=== PATIENT | female | born 1995 ===

== ENCOUNTER → 2017-11-03 | Outpatient (CLI) | payer OTHER ==
[~2017-11-03] MED LIST: LEVO1TBD PO; LORA5TAB16 PO; MONT10TA PO
[2017-11-03 09:31] LABS: PLATELET COUNT, AUTOMATED 226 K/uL (150-450)
== END ==
LOC: LAB 08:38
PROVIDERS: ATTEND Nurse Practitioner Primary Care
DX: R10.9 Unspecified abdominal pain (principal)
CPT/HCPCS: 36415; 81001; 82040; 82247; 82310; 82374; 82435; 82565; 82947; 84075; 84132; 84155; 84295; 84450; 84460; 84520; 85025

== ENCOUNTER → 2017-11-05 | Outpatient (CLI) | payer OTHER ==
[~2017-11-05] MED LIST changes: +SULF-198 PO
--- NOTE | 2017-11-05 09:23 | RADIOLOGY IMAGING REPORT ---
FACILITY: [facility] PATIENT NAME: Linh Vásquez : 1995 MR: [id number] V: [id number] EXAM DATE: ORDERING PHYSICIAN: HEYDI FLYNN TECHNOLOGIST: Location: [facility] Patient: Linh Vásquez : 1995 Visit/Account:[id number] Date of Sevice: 11/05/2017 CT abdomen and pelvis without IV contrast History: Flank pain COMPARISON STUDIES: none. TECHNIQUE: Axial CT images were obtained through the abdomen and pelvis without intravenous contras t. Reformatted coronal and sagittal images were also obtained. One of the following dose optimization techniques was utilized in the performance of this exam: Autom ated exposure control; adjustment of the mA and/or kV according to the patient's size; or use of an i terative reconstruction technique. Specific details can be referenced in the facility's radiology C T exam operational policy. FINDINGS: Chest bases: Negative Liver: Normal. Spleen: size is normal. Gallbladder and bile ducts: Gallbladder is present. Bile ducts are normal caliber. Pancreas: negative Adrenal glands: negative Kidneys and ureters: Both kidneys have preserved parenchymal thickness. There are no renal or urete r stones or hydronephrosis or hydroureter. Pelvic structures: Anteverted uterus is unremarkable. The ovaries are not enlarged. There are n o bladder stones. Bowel and mesenteries: Normal appendix in the right lower abdominal quadrant. Small bowel and colon are unremarkable. Ascites: None Vessels: negative Musculoskeletal: Negative Body wall: negative Lymph node assessment: negative IMPRESSION: No CT finding to explain flank pain. Report Dictated By: Roberta Mcmillan MD at 11/05/2017 9:15 AM Report E-Signed By: Roberta Mcmillan MD at 11/05/2017 9:20 AM WSN:[email or web address]
== END ==
LOC: CT 02:37
PROVIDERS: ATTEND Nurse Practitioner Primary Care
DX: R10.9 Unspecified abdominal pain (principal)
CPT/HCPCS: 74176

== ENCOUNTER → 2017-11-29 | Outpatient (CLI) | payer OTHER ==
[~2017-11-29] MED LIST changes: +FLU150 PO
[2017-11-29 10:16] LABS: PLATELET COUNT, AUTOMATED 236 K/uL (150-450)
== END ==
LOC: LAB 09:46
PROVIDERS: ATTEND Nurse Practitioner Primary Care
DX: R10.31 Right lower quadrant pain (principal)
CPT/HCPCS: 36415; 81001; 81025; 82040; 82247; 82310; 82374; 82435; 82565; 82947; 84075; 84132; 84155; 84295; 84450; 84460; 84520; 85025; 87210; 87491; 87591